=== PATIENT | female | born 1955 | race Caucasian/White ===

== ENCOUNTER 2020-10-27 19:35 | Inpatient (IN) | payer MEDICARE, OTHER ==
[~2020-10-27] VITALS: Ht 167.6 cm; Wt 93.9 kg
[~2020-10-27 19:35] MED LIST: ATEN25TA PO; ATOR20TA PO; CETI10TA14 PO; CLOB2.5O PO; DICL75TA5 PO; FLUT1BLS IH; LACO150T2 PO; LEVE500T19 PO; LEVO50TA8 PO; LOPE2CAP PO; OMEP20CA15 PO; OXCA150T13 PO; OXYC-133 PO; PARO-64 PO; PRAM0.253 PO; PROM118S5 PO; QUET100T PO
[2020-10-28] MEDS ORDERED: TEMAZEPAM 7.5 MG CAPSULE PO PRN (01:00)
[2020-10-28] MEDS ORDERED: BLOOD SUGAR DIAGNOSTIC 1 EACH STRIP IN ONE (01:00)
[2020-10-28] MEDS ORDERED: MAG HYDROX/AL HYDROX/SIMETH 30 ML UDC PO PRN (01:00)
[2020-10-28] MEDS ORDERED: MAGNESIUM HYDROXIDE 30 ML UDC PO PRN (01:00)
[2020-10-28] MEDS ORDERED: ALBU8.5H8 INH (01:55)
[2020-10-28] MEDS ORDERED: CLOB20TA3 PO (02:00)
[2020-10-28] MEDS ORDERED: BUDE10.2 INH (02:00)
[2020-10-28] MEDS ORDERED: LACO200T2 PO (02:00)
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
--- NOTE | 2020-10-28 02:13 | NUR ---
NURSES NOTES: PATIENT CAME IN WITH BELONGINGS- A PURSE AND A PATIENT BELONGING BAG WITH STUFF ON IT. HER PRUSE- BEIGE IN COLOR COMES WITH A PADLOCK . PATIENT REFUSED TO HAVE A FULL SEARCH OF THE BAG AND LOCKED IT IN FRONT OF THE LEHR LOADER HOWEVER, SHE AGREES TO HAVE IT IN THE LOCKER FOR SAFEKEEPING. SHE JUST DOESN'T WANT TO SHARE THE COMBINATION OF THE LOCK. PER PATIENT, "I HAVE THIS COMBINATION LOCK FOR 25 YEARS, AND I NEVER LOST ANYTHING, NOR HAVE I HURT ANYBODY WITH THE THINGS FROM THE BAG. " SHE HANDED OVER TO THE LEHR LOADER HER elicit PRESCRIPTION LABELS TO INFORM THE LEHR LOADER OF THE CURRENT MEDICATIONS SHE IS TAKING. PER PATIENT SHE IS ONLY TAKING TWO KINDS OF PILLS FOR HER SEIZURES AND THAT SHE HAS STOPPED USING THE CREAM BECAUSE SHE DOES NOT NEED IT ANYMORE.
[2020-10-28 02:17] VITALS: BP 138/88
--- NOTE | 2020-10-28 06:50 | NUR ---
GPS RN CLOSING NOTES: PATIENT IS AWAKE, A/O X2 AMBULATING IN HALLWAY. PATIENT SLEPT 2HR THIS SHIFT. PATIENT SKIN IS INTACT. NO S/S OF DISTRESS. RESPIRATION EVEN AND UNLABORED WITH EQUAL RISE AND FALL OF THE CHEST ON ROOM AIR. ALL PATIENT CARE NEEDS HAVE BEEN MET ANTICIPATED. WILL CONTINUE TO MONITOR FOR SAFETY, MOOD AND BEHAVIOR AND ENDORSE TO AM SHIFT.
[2020-10-28 07:19] LABS: CREATININE 0.7 mg/dL (0.6-1.3)
[2020-10-28 08:00] VITALS: BP 145/75
[2020-10-28] MEDS: LORAZEPAM 0.5 MG TABLET PO PRN (12:37)
--- NOTE | 2020-10-28 12:38 | NUR ---
RN NOTE: ANXIETY PT YELLING IN THE HALLWAY. CRYING. UNABLE TO BE REDIRECTED. MEDICATED WITH ATIVAN 1MG PO PRN. WILL CONT TO MONITOR NEED FOR PRN MEDICATIONS AND EFFECTIVENESS.
[2020-10-28] MEDS ORDERED: ALBUTEROL FS 2.5 MG/3 ML VIAL.NEB NEB PRN (13:00)
[2020-10-28] MEDS ORDERED: LORAZEPAM INJ 2 MG/ML VIAL IV PRN (14:30)
--- NOTE | 2020-10-28 15:03 | NUR ---
[facility]: Andrez ([phone]) from [facility] called the SW and stated that the pt had one of their caregivers and he wants to be updated when she is being discharged from the hospital.
[2020-10-28 16:00] VITALS: BP 135/81
[2020-10-28] MEDS ORDERED: LORAZEPAM INJ 2 MG/ML VIAL IM PRN (17:03)
[2020-10-28 20:00] VITALS: BP 106/55
[2020-10-28] MEDS: LACOSAMIDE 50 MG TABLET PO SCH (21:14)
[2020-10-29 06:48] LABS: BASOPHILS # (AUTO) 0.1 /CMM (0.0-0.2); BASOPHILS % (AUTO) 1.2 % (0.0-2.0); EOSINOPHILS % (AUTO) 4.1 % (0.0-6.0); HEMATOCRIT 43 % (33-45); HEMOGLOBIN 13.9 g/dL (11.5-14.8); LYMPHOCYTES # (AUTO) 2.4 /CMM (0.8-4.8); LYMPHOCYTES % (AUTO) 45.1 % (20.0-44.0); MEAN CORPUSCULAR HGB CONC 32 g/dl (31.0-36.0); MEAN CORPUSCULAR VOLUME 93 fL (82-100); MONOCYTES # (AUTO) 0.5 /CMM (0.1-1.30); MONOCYTES % (AUTO) 9.8 % (2.0-12.0); NEUTROPHILS # (AUTO) 2.2 /CMM (1.8-8.9); NEUTROPHILS % (AUTO) 39.8 % (43.0-81.0); PLATELET COUNT (AUTO) 203 /CMM (150-450); RED BLOOD CELL COUNT(AUTO) 4.64 MIL/uL (4.0-5.2); WHITE BLOOD COUNT (AUTO) 5.4 K/uL (4.3-11.0)
[2020-10-29 07:02] LABS: CALCIUM, SERUM 8.8 mg/dL (8.5-10.1); CREATININE 0.7 mg/dL (0.6-1.3); POTASSIUM 4.1 mmol/L (3.5-5.1)
[2020-10-29 07:24] LABS: THYROID STIMULATING HORMONE 4.378 uIU/mL (0.358-3.74)
[2020-10-29 08:00] VITALS: BP 120/67
[2020-10-29] MEDS: LACOSAMIDE 50 MG TABLET PO SCH ×3 (09:00→20:41)
--- NOTE | 2020-10-29 09:16 | NUR ---
RN NOTE: MEDICATION REFUSAL PT REFUSED 0900 VIMPAT. ATTEMPTED TO EDUCATE PT RE IMPORTANCE OF MEDICATION COMPLIANCE DUE TO SEIZURE DISORDER. PT CONT'D TO REFUSE X 3. WILL CONT TO MONITOR PT FOR SAFETY AND BEHAVIOR PER PROTOCOL.
[2020-10-29] MEDS ORDERED: CLOBAZAM 10MG TAB PO SCH (12:00)
[2020-10-29] MEDS ORDERED: KEY,NONCONTROL,TO KEEP IN PYXI 1 EA MC ONE ×2 (12:30→20:25)
[2020-10-29] MEDS: FLUTICASONE/VILANTEROL 1 EACH BLST.W.DEV IH SCH (12:51)
--- NOTE | 2020-10-29 12:53 | NUR ---
RN NOTE: PARTIAL MEDICATION REFUSAL PT REFUSED ONE TABLET CLOBAZAM 10 MG. PT INSISTS SHE ONLY TAKES ONE CLOBAZAM 10MG TABLET DAILY. ADDITIONAL CLOBAZAM 10MG TABLET WASTED WITH WITNESS.
[2020-10-29] MEDS ORDERED: CLOBAZAM 10MG TAB PO ONE (13:00)
[2020-10-29 16:00] VITALS: BP 111/51
--- NOTE | 2020-10-29 16:29 | NUR ---
Initial Discharge Plan: Pt currently resides in section 8 housing located at [address] [place] [address], [address] [address]; ([phone]). Per pt, she would like to return to her home and wants her caregiver to come back. SW will work with the pt and the MD regarding appropriate discharge planning. SW will form a safe and proper discharge.
[2020-10-29 19:46] VITALS: BP 113/67
[2020-10-29] MEDS: CLOBAZAM 10MG TAB PO SCH (20:28)
--- NOTE | 2020-10-30 06:32 | NUR ---
GPS RN CLOSING NOTES: PATIENT IS LAYING ON BED SLEEPING. PATIENT SLEPT 8HR THIS SHIFT. PATIENT WAS MED COMPLIANT THIS SHIFT. NO S/S OF DISTRESS. RESPIRATION EVEN AND UNLABORED WITH EQUAL RISE AND FALL OF THE CHEST ON ROOM AIR. ALL PATIENT CARE NEEDS HAVE BEEN MET ANTICIPATED. WILL CONTINUE TO MONITOR FOR SAFETY, MOOD AND BEHAVIOR AND ENDORSE TO AM SHIFT.
[2020-10-30] MEDS: LEVOTHYROXINE SODIUM 25 MCG TABLET PO SCH (07:30)
[2020-10-30 08:00] VITALS: BP 116/55
[2020-10-30] MEDS: SERTRALINE HCL 50 MG TABLET PO SCH (08:11)
[2020-10-30] MEDS: clonazePAM 0.5 MG TABLET PO SCH ×2 (08:11→16:41)
[2020-10-30] MEDS: LACOSAMIDE 50 MG TABLET PO SCH ×2 (08:11→20:20)
[2020-10-30] MEDS: FLUTICASONE/VILANTEROL 1 EACH BLST.W.DEV IH SCH (08:14)
--- NOTE | 2020-10-30 08:15 | NUR ---
RN NOTE: MEDICATION REFUSAL PT REFUSED ALL AM PO MEDICATIONS. PT REFUSED TO EAT BREAKFAST DUE TO NOT LIKING THE FOOD. PT REFUSED TO TAKE MEDICATIONS DUE TO NEEDING TO EAT BEFORE TAKING THEM. PT BEGAN TO CRY UNCONTROLLABLY AND WAS DIFFICULT TO REDIRECT. YELLING IN THE HOSPITAL HALLWAY. ATTEMPTED TO EDUCATE PT RE IMPORTANCE OF MEDICATION COMPLIANCE RELATED TO SEIZURE DISORDER. NO CURRENT S/SX OF SEIZURE. PT CONT'D TO REFUSE X 3. WILL CONT TO MONITOR FOR SAFETY, BEHAVIOR AND SEIZURE PER PROTOCOL
[2020-10-30 16:00] VITALS: BP 142/69
--- NOTE | 2020-10-30 16:42 | NUR ---
RN NOTE: MEDICATION REFUSAL PT REFUSED 1700 KLONOPIN. ATTEMPTED TO EDUCATE PT RE IMPORTANCE OF MEDICATION COMPLIANCE. PT CONT'D TO REFUSE X 3
[2020-10-30 20:00] VITALS: BP 136/75
[2020-10-30] MEDS ORDERED: KEY,NONCONTROL,TO KEEP IN PYXI 1 EA MC ONE ×2 (20:14→20:18)
[2020-10-30] MEDS: CLOBAZAM 10MG TAB PO SCH (20:20)
[2020-10-30] MEDS: risperiDONE 1 MG TABLET PO SCH (21:18)
[2020-10-31] MEDS: LEVOTHYROXINE SODIUM 25 MCG TABLET PO SCH (07:30)
--- NOTE | 2020-10-31 07:51 | NUR ---
RN-NOTES PATIENT REFUSED SYNTHROID 25MG P.O STATED" I DON'T WANT IT,BECAUSE I TAKE ALL IT AT HOME",EXPLAINED RISK AND BENEFITS BUT STILL REFUSED. OFFERED X3
[2020-10-31] MEDS: risperiDONE 1 MG TABLET PO SCH ×2 (09:00→20:51)
[2020-10-31] MEDS: SERTRALINE HCL 50 MG TABLET PO SCH (09:00)
[2020-10-31] MEDS: DIVALPROEX SODIUM 250 MG TABLET.DR PO SCH ×3 (09:00→16:31)
[2020-10-31] MEDS: clonazePAM 0.5 MG TABLET PO SCH ×2 (09:00→16:30)
[2020-10-31] MEDS: LACOSAMIDE 50 MG TABLET PO SCH ×2 (09:45→20:51)
[2020-10-31] MEDS: FLUTICASONE/VILANTEROL 1 EACH BLST.W.DEV IH SCH (09:46)
--- NOTE | 2020-10-31 09:54 | NUR ---
RN-NOTES PATIENT SELECTIVE WITH MEDICATIONS,REFUSED ALL EXCEPT VIMPAT. STATED" I ONLY TAKE THOSE 4 PILLS WHICH IS VIMPAT". EXPLAINED RISK AND BENEFITS BUT PATIENT GETS AGITATED AND ARGUMENTATIVE. OFFERED X3.
--- NOTE | 2020-10-31 10:16 | NUR ---
[facility] Contact: Catrina ([phone]), pts mental health therapist, contacted the SW and stated that she would like to have phone sessions with the pt while she is in the hospital and would like the SW to contact her when there is a discharge date.
--- NOTE | 2020-10-31 13:36 | NUR ---
RN-NOTES PATIENT CONT.REFUSING MEDICATIONS,EXPLAINED RISK AND BENEFITS BUT PATIENT GETS ANGRY AND ARGUMENTATIVE. OFFERED X3
[2020-10-31 16:00] VITALS: BP 146/72
[2020-10-31 19:37] VITALS: BP 143/58
[2020-10-31 20:00] VITALS: BP 143/58
[2020-10-31] MEDS ORDERED: KEY,NONCONTROL,TO KEEP IN PYXI 1 EA MC ONE (20:04)
[2020-10-31] MEDS: CLOBAZAM 10MG TAB PO SCH (20:07)
--- NOTE | 2020-10-31 20:53 | NUR ---
RN NOTE PATIENT WANTED TO TAKE VIMPAT AT THIS TIME, PATIENT ALSO AGREED TO TAKE RISPERDAL SCHEDULED & TOLERATED WELL. WILL CONTINUE TO MONITOR.
[2020-11-01] MEDS: LEVOTHYROXINE SODIUM 25 MCG TABLET PO SCH (07:00)
[2020-11-01 08:00] VITALS: BP 125/73
[2020-11-01] MEDS: DIVALPROEX SODIUM 250 MG TABLET.DR PO SCH ×3 (08:40→16:30)
[2020-11-01] MEDS: SERTRALINE HCL 50 MG TABLET PO SCH (08:40)
[2020-11-01] MEDS: risperiDONE 1 MG TABLET PO SCH ×2 (08:40→20:47)
[2020-11-01] MEDS: FLUTICASONE/VILANTEROL 1 EACH BLST.W.DEV IH SCH (08:41)
[2020-11-01] MEDS: clonazePAM 0.5 MG TABLET PO SCH ×2 (08:41→16:30)
[2020-11-01] MEDS: LACOSAMIDE 50 MG TABLET PO SCH ×2 (08:41→20:47)
[2020-11-01 16:09] VITALS: BP 133/78
[2020-11-01] MEDS: ACETAMINOPHEN 325 MG TABLET PO PRN (18:17)
--- NOTE | 2020-11-01 18:19 | NUR ---
GPS RN NOTES PATIENT COMPLAINING OF BACK PAIN. PRN TYLENOL ADMINISTERED. WILL REASSESS.
--- NOTE | 2020-11-01 19:15 | NUR ---
RN OPENING NOTE PATIENT IN THE ROOM, WALKING AROUND. PATIENT ABLE TO MAKE NEEDS KNOWN. A/O X 3. BREATHING EVEN AND UNLABORED, TOLERATING ROOM AIR. PATIENT IS AMBULATORY AND INDEPENDENT. PATIENT IS COOPERATIVE AT THIS TIME, SEEMS FRUSTRATED AND ANXIOUS. SAFETY MEASURES IN PLACE: BED IN LOCKED AND LOWEST POSITION, SIDE RAILS UP, AND ENCOURAGED PATIENT TO VERBALIZE ANY CONCERNS OR IF IN NEED. WILL MONITOR PATIENT CLOSELY.
[2020-11-01 20:00] VITALS: BP 151/84
[2020-11-01 20:23] VITALS: BP 151/84
[2020-11-01] MEDS ORDERED: KEY,NONCONTROL,TO KEEP IN PYXI 1 EA MC ONE (20:42)
[2020-11-01] MEDS: CLOBAZAM 10MG TAB PO SCH (20:44)
--- NOTE | 2020-11-02 06:40 | NUR ---
RN CLOSING NOTE PATIENT IN BED EYES CLOSED, EASILY AROUSED. NOT IN ANY APPARENT DISTRESS. NO SIGNIFICANT CHANGES IN CONDITION DURING THE SHIFT. ALL NEEDS MET AND ATTENDED, SAFETY MEASURES MAINTAINED. WILL ENDORSE TO ONCOMING SHIFT FOR DAVID.
[2020-11-02 08:00] VITALS: BP 117/66
[2020-11-02] MEDS: FLUTICASONE/VILANTEROL 1 EACH BLST.W.DEV IH SCH (09:30)
[2020-11-02] MEDS: LEVOTHYROXINE SODIUM 25 MCG TABLET PO SCH (09:31)
[2020-11-02] MEDS: DIVALPROEX SODIUM 250 MG TABLET.DR PO SCH ×3 (09:31→17:55)
[2020-11-02] MEDS: clonazePAM 0.5 MG TABLET PO SCH ×2 (09:31→17:00)
[2020-11-02] MEDS: LACOSAMIDE 50 MG TABLET PO SCH ×2 (09:31→22:32)
[2020-11-02] MEDS: SERTRALINE HCL 50 MG TABLET PO SCH (09:32)
[2020-11-02] MEDS: risperiDONE 1 MG TABLET PO SCH ×2 (09:34→22:32)
--- NOTE | 2020-11-02 15:46 | NUR ---
pt. in tv rm. playing cards,other pt. coming to rn reports pt.appears to be having seizure,rn in to day rm.pt. appears to have a slight amt. of trembling and blank stare on face.then suddenly up walking aimlessly.in to rm.[id number],pushing another pt. off toilet.given ativan injection for seizure activity.
[2020-11-02 16:00] VITALS: BP 126/65
--- NOTE | 2020-11-02 17:54 | NUR ---
ORAL ROUTINE CLONOPIN HELD HAD IM ATIVAN AT 1546.
[2020-11-02 20:04] VITALS: BP 113/63
[2020-11-02] MEDS ORDERED: KEY,NONCONTROL,TO KEEP IN PYXI 1 EA MC ONE (20:39)
[2020-11-02] MEDS: CLOBAZAM 10MG TAB PO SCH (20:45)
--- NOTE | 2020-11-02 21:20 | NUR ---
MS RN: CONTINUITY OF CARE Report given by Brennan/YANELI. Patient in bed, awake, in no distress. Refused bed alarm on, bed in low position. Patient remains on inpatient psyche care.
[2020-11-03] MEDS: ACETAMINOPHEN 325 MG TABLET PO PRN (03:57)
--- NOTE | 2020-11-03 04:01 | NUR ---
MS RN: BACK PAIN Patient c/o lower back pain 07/31. PRN Tylenol given, will reassess pain lever. Denies N/V.
--- NOTE | 2020-11-03 04:57 | NUR ---
MS RN: REASSESSMENT Patient reports less back pain after PRN Tylenol.
[2020-11-03 08:00] VITALS: BP 159/80
[2020-11-03] MEDS: LEVOTHYROXINE SODIUM 25 MCG TABLET PO SCH (08:43)
[2020-11-03] MEDS: clonazePAM 0.5 MG TABLET PO SCH ×2 (08:43→16:25)
[2020-11-03] MEDS: risperiDONE 1 MG TABLET PO SCH ×2 (08:43→20:48)
[2020-11-03] MEDS: SERTRALINE HCL 50 MG TABLET PO SCH (08:44)
[2020-11-03] MEDS: LACOSAMIDE 50 MG TABLET PO SCH ×2 (08:44→20:49)
[2020-11-03] MEDS: DIVALPROEX SODIUM 250 MG TABLET.DR PO SCH ×3 (08:44→16:25)
[2020-11-03] MEDS: FLUTICASONE/VILANTEROL 1 EACH BLST.W.DEV IH SCH (08:47)
[2020-11-03 16:00] VITALS: BP 156/87
[2020-11-03 20:14] VITALS: BP 132/71
[2020-11-03] MEDS ORDERED: KEY,NONCONTROL,TO KEEP IN PYXI 1 EA MC ONE (20:32)
[2020-11-03] MEDS: CLOBAZAM 10MG TAB PO SCH (20:48)
[2020-11-04] MEDS: LEVOTHYROXINE SODIUM 25 MCG TABLET PO SCH (07:30)
[2020-11-04 08:00] VITALS: BP 122/96
[2020-11-04] MEDS: FLUTICASONE/VILANTEROL 1 EACH BLST.W.DEV IH SCH (09:00)
[2020-11-04] MEDS: LACOSAMIDE 50 MG TABLET PO SCH ×2 (09:12→20:54)
[2020-11-04] MEDS: DIVALPROEX SODIUM 250 MG TABLET.DR PO SCH ×3 (09:13→17:42)
[2020-11-04] MEDS: risperiDONE 1 MG TABLET PO SCH ×2 (09:13→20:55)
[2020-11-04] MEDS: SERTRALINE HCL 50 MG TABLET PO SCH (09:13)
[2020-11-04] MEDS: clonazePAM 0.5 MG TABLET PO SCH ×2 (09:13→17:39)
[2020-11-04 16:00] VITALS: BP 159/92
[2020-11-04 20:00] VITALS: BP 127/66
--- NOTE | 2020-11-04 20:00 | NUR ---
GPS RN NOTE: PT IN OWN ROOM IN BED. NO ACUTE DISTRESS NOTED. VSS, NO S/S DISTRESS NOTED COMPLIANT WITH MEDICATIONS INDEPENDENT WITH ADLS AND PO INTAKE. DENIES SI/HI AND AUDITORY HALLUCINATIONS. WILL CONT TO MONITOR FOR SAFETY AND BEHAVIOR PER PROTOCOL.
[2020-11-04] MEDS ORDERED: KEY,NONCONTROL,TO KEEP IN PYXI 1 EA MC ONE (20:44)
[2020-11-04] MEDS: CLOBAZAM 10MG TAB PO SCH (20:55)
[2020-11-05 08:00] VITALS: BP 127/78
[2020-11-05] MEDS: risperiDONE 1 MG TABLET PO SCH ×2 (08:22→20:39)
[2020-11-05] MEDS: SERTRALINE HCL 50 MG TABLET PO SCH (08:22)
[2020-11-05] MEDS: LACOSAMIDE 50 MG TABLET PO SCH ×2 (08:22→20:39)
[2020-11-05] MEDS: clonazePAM 0.5 MG TABLET PO SCH ×2 (08:22→16:52)
[2020-11-05] MEDS: DIVALPROEX SODIUM 250 MG TABLET.DR PO SCH ×3 (08:22→16:52)
[2020-11-05] MEDS: LEVOTHYROXINE SODIUM 25 MCG TABLET PO SCH (08:22)
[2020-11-05] MEDS: FLUTICASONE/VILANTEROL 1 EACH BLST.W.DEV IH SCH (08:48)
--- NOTE | 2020-11-05 14:24 | NUR ---
[facility] Contact: SW received a call from Nasima ([phone]) from the [facility] who stated that she wanted to be kept updated on the pts treatment.
--- NOTE | 2020-11-05 14:29 | NUR ---
[facility] Contact: MARYA received a call from Nasima ([phone]) from the [facility] who stated that she was wondering if the pt has a discharge date and the SW stated that it will be Wednesday.
[2020-11-05 16:00] VITALS: BP 139/75
[2020-11-05 20:00] VITALS: BP 105/52
[2020-11-05] MEDS ORDERED: KEY,NONCONTROL,TO KEEP IN PYXI 1 EA MC ONE (20:31)
[2020-11-05] MEDS: CLOBAZAM 10MG TAB PO SCH (20:38)
[2020-11-06 08:00] VITALS: BP 124/68
[2020-11-06] MEDS: LACOSAMIDE 50 MG TABLET PO SCH ×2 (08:52→21:22)
[2020-11-06] MEDS: DIVALPROEX SODIUM 250 MG TABLET.DR PO SCH ×3 (08:53→17:29)
[2020-11-06] MEDS: FLUTICASONE/VILANTEROL 1 EACH BLST.W.DEV IH SCH (08:53)
[2020-11-06] MEDS: SERTRALINE HCL 50 MG TABLET PO SCH (08:53)
[2020-11-06] MEDS: clonazePAM 0.5 MG TABLET PO SCH ×2 (08:53→17:28)
[2020-11-06] MEDS: LEVOTHYROXINE SODIUM 25 MCG TABLET PO SCH (08:54)
[2020-11-06] MEDS: risperiDONE 1 MG TABLET PO SCH ×2 (08:56→21:34)
[2020-11-06] MEDS: LORAZEPAM 0.5 MG TABLET PO PRN (12:48)
--- NOTE | 2020-11-06 12:56 | NUR ---
given ativan for agitation.
[2020-11-06] MEDS ORDERED: KEY,NONCONTROL,TO KEEP IN PYXI 1 EA MC ONE ×2 (13:17→19:53)
[2020-11-06 16:00] VITALS: BP 136/88
[2020-11-06 19:51] VITALS: BP 125/71
[2020-11-06] MEDS: CLOBAZAM 10MG TAB PO SCH (20:00)
[2020-11-07 08:00] VITALS: BP 139/79
[2020-11-07] MEDS: risperiDONE 1 MG TABLET PO SCH ×2 (08:41→20:57)
[2020-11-07] MEDS: SERTRALINE HCL 50 MG TABLET PO SCH (08:41)
[2020-11-07] MEDS: clonazePAM 0.5 MG TABLET PO SCH ×2 (08:41→17:11)
[2020-11-07] MEDS: LEVOTHYROXINE SODIUM 25 MCG TABLET PO SCH (08:41)
[2020-11-07] MEDS: LACOSAMIDE 50 MG TABLET PO SCH ×2 (08:41→20:57)
[2020-11-07] MEDS: DIVALPROEX SODIUM 250 MG TABLET.DR PO SCH ×3 (08:41→17:11)
[2020-11-07] MEDS: FLUTICASONE/VILANTEROL 1 EACH BLST.W.DEV IH SCH (09:34)
--- NOTE | 2020-11-07 09:43 | NUR ---
[facility]: MARYA called Andrez ([phone]) from [facility] and informed him that the pt is going to be discharged tomorrow around 10am. He stated that he will come and pick her up.
--- NOTE | 2020-11-07 09:55 | NUR ---
[facility] Contact: MARYA called Nasima ([phone]) from the [facility] and left a voicemail to inform her that the pt is being discharged tomorrow.
[2020-11-07 16:00] VITALS: BP 143/75
[2020-11-07 20:22] VITALS: BP 118/74
[2020-11-07] MEDS ORDERED: KEY,NONCONTROL,TO KEEP IN PYXI 1 EA MC ONE (20:48)
[2020-11-07] MEDS: CLOBAZAM 10MG TAB PO SCH (20:56)
--- NOTE | 2020-11-08 06:46 | NUR ---
GPS RN CLOSING NOTE PATIENT LYING IN BED A/OX2. SLSEEPING NO ACUTE DISTRESS NOTED. TOLERATING ROOM AIR WELL WITH NO SOB. NO S/SX PAIN AT THIS TIME. PATIENT IS MED COMPLIANT. PATIENT DENIES SI/HI AT THIS TIME. SAFTY MEASURES IN PLACE: BED IN LOWEST LOCKED POSITION, SIDE RAILS UPX2, EDUCATED PATIENT TO USE CALL LIGHT. WILL ENDORSE MONITORING FOR SAFETY AND BEHAVIOR, AND PLAN OF CARE.
[2020-11-08 08:00] VITALS: BP 102/56
[2020-11-08] MEDS: SERTRALINE HCL 50 MG TABLET PO SCH (08:19)
[2020-11-08] MEDS: LACOSAMIDE 50 MG TABLET PO SCH (08:19)
[2020-11-08] MEDS: DIVALPROEX SODIUM 250 MG TABLET.DR PO SCH (08:19)
[2020-11-08] MEDS: LEVOTHYROXINE SODIUM 25 MCG TABLET PO SCH (08:19)
[2020-11-08] MEDS: clonazePAM 0.5 MG TABLET PO SCH (08:19)
[2020-11-08] MEDS: risperiDONE 1 MG TABLET PO SCH (08:38)
[2020-11-08] MEDS: FLUTICASONE/VILANTEROL 1 EACH BLST.W.DEV IH SCH (08:39)
--- NOTE | 2020-11-08 09:10 | NUR ---
Discharge Note: Pt will be discharged to her home located at [address], [address], [place] [address]; ([phone]). Pt will be picked up by caregiver, Andrez ([phone]) from [facility], around 10am. Upon discharge, the pt appeared to be alert and oriented x4 (time, place, self and situation). Pt appeared to be in a euthymic mood and presented with a calm mood. Pt denied both suicidal and homicidal ideation as well as auditory and visual hallucinations. Pt is ambulatory and appears to be well groomed. Pt will continue to be under the care of [facility] located at [address], [place] [address]; ; fax of records was sent to: . Pt will be under the care of her blending kettle tender, Dr. Koch, located at [id number] [place] [address] [address], [place] [address]; ; fax: [phone]. The multidisciplinary exit care form was done, printed, signed, and given to the patient.
[2020-11-08] MEDS ORDERED: KEY,NONCONTROL,TO KEEP IN PYXI 1 EA MC ONE (09:54)
--- NOTE | 2020-11-08 10:55 | NUR ---
RN-DISCHARGE NOTES DR. SIMMONS GAVE DISCHARGE ORDERS AND DR. HUTCHINSONAMAN AWARE OF THE DISCHARGE WITH ORDERS. PATIENT DID NOT VERBALIZE SI/HI,DENIES VISUAL/AUDITORY HALLUCINATIONS AT THE TIME OF DISCHARGE. PATIENT REFUSED TO SIGN ALL DISCHARGE PAPERS AND REUSED FULL BODY ASSESSMENT PRIOR TO DISCHARGE.ALL DISCHARGE MEDICATIONS WAS REVIEWED WITH THE PATIENT WITH UNDERSTANDING. RX WAS GIVEN TO HER INCLUDING DISCHARGE PAPERS AND BELONGINGS. PER PATIENT SHE STILL HAVE ALL MEDICATIONS AND THAT SHE DON'T NEED RX. 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 PATIENT LEFT THE UNIT IN STABLE CONDITION A/O X4 AMBULATORY STEADY GAIT. MASK WAS GIVEN TO THE PATIENT. WELFARE INTERVIEWER INSTRUCTED PATIENT TO CALL 911 OR GO TO THE NEAREST EMERGENCY ROOM INCASE OF EMERGENCY.
== END 2020-11-08 10:55 | disposition home or self-care (01) | DRG 881 ==
LOC: GPS 23:25
PROVIDERS: ADMIT Psychiatry & Neurology Psychiatry; ATTEND Nurse Practitioner Family
DX: F32.9 Major depressive disorder, single episode, unspecified (principal); G93.40 Encephalopathy, unspecified; F29 Unspecified psychosis not due to a substance or known physiological condition; F41.9 Anxiety disorder, unspecified; Z73.6 Limitation of activities due to disability; E03.9 Hypothyroidism, unspecified; J45.909 Unspecified asthma, uncomplicated; M19.90 Unspecified osteoarthritis, unspecified site; G40.909 Epilepsy, unspecified, not intractable, without status epilepticus; R62.50 Unspecified lack of expected normal physiological development in childhood
CPT/HCPCS: 36415; 80048-TC; 80061-TC; 82565-TC; 82962-TC; 84439-TC; 84443-TC; 85025-TC; 87081-TC; J2060